=== PATIENT | male | born 1985 | race Caucasian/White ===

== ENCOUNTER 2018-03-15 18:57 | Emergency (ER) | payer OTHER, MEDICAID ==
[~2018-03-15] VITALS: Ht 172.7 cm; Wt 77.1 kg
[2018-03-15 19:26] VITALS: Ht 172.7 cm; Wt 77.1 kg
[2018-03-15 22:05] VITALS: BP 137/84
== END 2018-03-15 22:05 | disposition home or self-care (01) ==
LOC: ED 18:57
DX: S43.402A Unspecified sprain of left shoulder joint, initial encounter (principal); S56.812A Strain of other muscles, fascia and tendons at forearm level, left arm, initial encounter; V43.52XA Car driver injured in collision with other type car in traffic accident, initial encounter; Y93.I9 Activity, other involving external motion; Y92.413 State road as the place of occurrence of the external cause; Y99.8 Other external cause status